=== PATIENT | female | born 1970 | race Caucasian/White ===

== ENCOUNTER 2018-02-08 21:47 | Emergency (ER) | payer MEDICAID ==
[~2018-02-08] VITALS: Ht 152.4 cm; Wt 93.2 kg
[2018-02-08] MEDS ORDERED: BACITRACIN 0.9 GM PACKET OINTMENT TP ONE (22:45)
[2018-02-08] MEDS ORDERED: LIDOCAINE HCL 1% 10 ML VIAL INJ ONE (22:45)
[2018-02-08] MEDS ORDERED: PERTUSS(ACELL),DIPH,TET VAC/PF 0.5 ML VIAL IM ONE (22:45)
[2018-02-09 00:08] VITALS: BP 137/82
== END 2018-02-09 00:15 | disposition home or self-care (01) ==
LOC: EMS 21:48
DX: S51.812A Laceration without foreign body of left forearm, initial encounter (principal); I10 Essential (primary) hypertension; W20.8XXA Other cause of strike by thrown, projected or falling object, initial encounter; Y93.89 Activity, other specified; Y92.89 Other specified places as the place of occurrence of the external cause; Y99.8 Other external cause status
CPT/HCPCS: 12002; 90471; 90715; 99283; J3490

== ENCOUNTER 2018-02-19 17:10 | Emergency (ER) | payer MEDICAID ==
[~2018-02-19] VITALS: Ht 152.4 cm; Wt 93.2 kg
[2018-02-19 20:23] VITALS: BP 121/77
== END 2018-02-19 20:27 | disposition home or self-care (01) ==
LOC: EMS 17:11
DX: S51.811D Laceration without foreign body of right forearm, subsequent encounter (principal); I10 Essential (primary) hypertension; Z98.890 Other specified postprocedural states; X58.XXXD Exposure to other specified factors, subsequent encounter
CPT/HCPCS: 99283